=== PATIENT | male | born 1995 | race Caucasian/White ===

== ENCOUNTER 2021-04-28 14:45 | Emergency (ER) | payer BC, OTHER ==
[~2021-04-28] VITALS: Ht 180 cm; Wt 111.0 kg
[~2021-04-28 14:45] MED LIST: ALBU17AE3; FEXO30TA17
--- NOTE | 2021-04-28 15:44 | ED Respiratory ---
General Chief Complaint: Respiratory Problems Stated Complaint: SOA Nursing Triage Note: ARRIVED VIA AMB WITH COMPLAINTS OF SOA STARTING YESTERDAY. WAS SEEN AT [facility] ET WAS NOT TESTED FOR COVID. Source: patient Exam Limitations: no limitations History of Present Illness Date Seen by Provider: Apr 28, 2021 Allergies and Home Medications Allergies Coded Allergies: No Known Drug Allergies (Unverified , 05/24/09) Patient Home Medication List Fexofenadine Hcl (Nubia) 30 Mg Tablet, (Reported) Entered as Reported by: NILESH JEAN on 01/16/111703 Discontinued Medications Albuterol (Proventil) 17 Gm Inh, (Reported) Discontinued Reason: No Longer Taking Entered as Reported by: SAMARA VOGEL on 05/24/092201 Last Action: Discontinued Past Jkihvnz-Lhbskk-Fsckmj Hx Patient Social History Tobacco Use?: No Substance use?: No Alcohol Use?: Yes Alcohol Frequency: Couple times a week Physical Exam Vital Signs - First Documented 04/28/21 14:50 Temp 35.6 Pulse 75 Resp 16 B/P (MAP) 140/88 (105) Pulse Ox 97 O2 Delivery Room Air Capillary Refill : Less Than 3 Seconds Height: '" Weight: lbs. oz. kg; 34.00 BMI Method: Progress/Results/Core Measures Suspected Sepsis SIRS Temperature: Pulse: 75 Respiratory Rate: 16 Blood Pressure 140 /88 Mean: 105 Results/Orders Lab Results Laboratory Tests Test 04/28/21 15:00 Range/Units Influenza Type A (RT-PCR) Not Detected Not Detecte Influenza Type B (RT-PCR) Not Detected Not Detecte SARS-CoV-2 RNA (RT-PCR) Not Detected Not Detecte My Orders Orders - URBAN PEREZ APRN Covid 19 Inhouse Test (04/28/21 15:35) Influenza A And B By Pcr (04/28/21 15:35) Isolation Central Supply Req (04/28/21 15:35) Vital Signs/I&O 04/28/21 14:50 Temp 35.6 Pulse 75 Resp 16 B/P (MAP) 140/88 (105) Pulse Ox 97 O2 Delivery Room Air Capillary Refill : Less Than 3 Seconds Blood Pressure Mean: 105 Departure Impression Primary Impression: Reactive airway disease Disposition: 01 HOME, SELF-CARE Condition: Stable Departure-Patient Inst. Decision time for Depature: 16:09 Patient Instructions: Asthma, Adult ED Add. Discharge Instructions: Plan: 1. Use Albuterol 2 puffs every 4 hours as needed for shortness of breath. 2. Follow up with your doctor or return if you develop fever, nausea, vomiting, or any other concerning symptoms. 3. Return to ER for any new, concerning symptoms. All discharge instructions reviewed with patient and/or family. Voiced understanding. Scripts Albuterol Sulfate (VENTOLIN HFA) 1 Puff Puff 2 PUFF INH Q4H, #1 UNIT 0 Refills 1 PUFF = 90 MCG Prov: URBAN PEREZ OVERCOIL STEPPER 04/28/21 URBAN PEREZ OVERCOIL STEPPER Apr 28, 2021 15:44
[2021-04-28] MEDS ORDERED: RT-ALBUINH INH (16:11)
[2021-04-28] MEDS ORDERED: RT-ALBUTEROL HFA 8.5 GM INHALER IH ONE ×2 (16:34→18:00)
--- NOTE | 2021-04-28 16:48 | Diagnostic Imaging Report ---
INDICATION: Chest tightness and shortness of air. EXAMINATION: Chest 04/28/2021 FINDINGS: The cardiomediastinal silhouette is unremarkable. The pulmonary vasculature is within normal limits. The lungs and pleural spaces are clear. IMPRESSION: No evidence of an acute cardiopulmonary process. Dictated by: Dictated on workstation # [id number]
[2021-04-28 17:01] VITALS: BP 131/94
== END 2021-04-28 17:01 | disposition home or self-care (01) ==
LOC: EDUNIT# 14:45 → ER 14:46
DX: J45.909 Unspecified asthma, uncomplicated (principal); Z20.822 Contact with and (suspected) exposure to COVID-19
CPT/HCPCS: 71045; 87636

== ENCOUNTER 2023-03-16 20:37 | Emergency (ER) | payer BC ==
[~2023-03-16] VITALS: Ht 180.3 cm; Wt 111.0 kg
[~2023-03-16 20:37] MED LIST changes: +RT-ALBUINH INH
[2023-03-16] MEDS ORDERED: KETOROLAC 30 MG/ML VIAL IVP STA (21:02)
[2023-03-16] MEDS ORDERED: NS IV 1000 ML 1,000 ML IV STA (21:02)
[2023-03-16] MEDS ORDERED: FAMOTIDINE 20 MG (PEPCID) TABLET PO STA (21:02)
--- NOTE | 2023-03-16 21:07 | ED GI ---
General Stated Complaint: ABDOMINAL PAIN History of Present Illness Date Seen by Provider: Mar 16, 2023 Time Seen by Provider: 20:45 Initial Comments Here with report of central abdominal pain radiating left and right that is associated with nausea, shortness of breath and fatigue. 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 Denies diarrhea or dysuria and denies blood in his urine or stool. Denies sore throat or cough but does have some nasal congestion. He is vaccinated for COVID and has had COVID previously. Reports drinking okay decreased appetite and reports increased urination. He does chew tobacco and occasionally drinks. No significant abdominal surgery history. Timing/Duration: 4-6 Hours Severity/Quality: Moderate Location: Other (Central) Radiation: Other (Middle abdomen both right and left side) Activities at Onset: None Modifying Factors: Improves With Resting Associated Symptoms: No Back Pain, No Chest Pain, No Fever/Chills; Fatigue, Nausea/Vomiting, Shortness of Air Allergies and Home Medications Allergies Coded Allergies: No Known Drug Allergies (Unverified , 05/24/09) Patient Home Medication List Home Medication List Reviewed: Yes Albuterol Sulfate (Ventolin Hfa) 1 Puff Puff, 2 PUFF INH Q4H Prescribed by: URBAN PEREZ on 04/28/21 1611 Fexofenadine Hcl (Nubia) 30 Mg Tablet, (Reported) Entered as Reported by: NILESH JEAN on 01/16/11 1704 Review of Systems Review of Systems Constitutional: see HPI; No chills, No fever EENTM: Nose Congestion; No Throat Pain Respiratory: Denies Cough; Shortness of Air Cardiovascular: Denies Chest Pain, Denies Edema Gastrointestinal: Abdominal Pain; Denies Diarrhea; Nausea; Denies Vomiting Genitourinary: Frequency; Denies Flank Pain Skin: no symptoms reported Past Quxcpqe-Kjljog-Qlnjgb Hx Patient Social History Tobacco Use?: No Smokeless Tobacco Frequency: Current Everyday User Use of E-Cig and/or Vaping dev: No Substance use?: No Alcohol Use?: Yes Alcohol Frequency: Once in a while Past Medical History Surgeries: Yes Orthopedic Respiratory: No Cardiac: No Genitourinary: No Gastrointestinal: No Musculoskeletal: No Endocrine: No Family Medical History Reviewed Nursing Family Hx No Pertinent Family Hx Physical Exam Vital Signs Vital Signs - First Documented 03/16/23 20:45 Temp 36.9 Pulse 115 Resp 16 B/P (MAP) 145/87 (106) Pulse Ox 96 O2 Delivery Room Air Capillary Refill : Height/Weight/BMI Height: '" Weight: lbs. oz. kg; 34.00 BMI Method: General Appearance: WD/WN, no apparent distress HEENT: PERRL/EOMI, pharynx normal, other (Mild nasal congestion) Neck: full range of motion, supple Respiratory: lungs clear, normal breath sounds Cardiovascular: no murmur, tachycardia Gastrointestinal: soft; No guarding, No rebound; tenderness (Centrally left and right side as well as middle) Extremities: non-tender, normal inspection Back: normal inspection, no CVA tenderness, no vertebral tenderness Skin: normal color, warm/dry Progress/Results/Core Measures Results/Orders Lab Results Laboratory Tests Test 03/16/23 20:50 03/16/23 20:55 Range/Units White Blood Count 13.1 H 4.3-11.0 10^3/uL Red Blood Count 5.80 H 4.30-5.52 10^6/uL Hemoglobin 16.3 13.3-17.7 g/dL Hematocrit 48 40-54 % Mean Corpuscular Volume 82 80-99 fL Mean Corpuscular Hemoglobin 28 25-34 pg Mean Corpuscular Hemoglobin Concent 34 32-36 g/dL Red Cell Distribution Width 12.7 10.0-14.5 % Platelet Count 258 130-400 10^3/uL Mean Platelet Volume 10.5 9.0-12.2 fL Immature Granulocyte % (Auto) 1 % Neutrophils (%) (Auto) 85 H 42-75 % Lymphocytes (%) (Auto) 6 L 12-44 % Monocytes (%) (Auto) 8 0-12 % Eosinophils (%) (Auto) 0 0-10 % Basophils (%) (Auto) 0 0-10 % Neutrophils # (Auto) 11.1 H 1.8-7.8 10^3/uL Lymphocytes # (Auto) 0.8 L 1.0-4.0 10^3/uL Monocytes # (Auto) 1.0 0.0-1.0 10^3/uL Eosinophils # (Auto) 0.1 0.0-0.3 10^3/uL Basophils # (Auto) 0.0 0.0-0.1 10^3/uL Immature Granulocyte # (Auto) 0.1 0.0-0.1 10^3/uL Percent Immature Platelet Fraction 5.6 0.0-7.6 % Sodium Level 138 135-145 MMOL/L Potassium Level 4.0 3.6-5.0 MMOL/L Chloride Level 105 98-107 MMOL/L Carbon Dioxide Level 21 21-32 MMOL/L Anion Gap 12 5-14 MMOL/L Blood Urea Nitrogen 13 7-18 MG/DL Creatinine 1.01 0.60-1.30 MG/DL Estimat Glomerular Filtration Rate 103 BUN/Creatinine Ratio 13 Glucose Level 108 H 70-105 MG/DL Calcium Level 9.4 8.5-10.1 MG/DL Corrected Calcium 9.1 8.5-10.1 MG/DL Total Bilirubin 0.4 0.1-1.0 MG/DL Aspartate Amino Transf (AST/SGOT) 24 5-34 U/L Alanine Aminotransferase (ALT/SGPT) 48 0-55 U/L Alkaline Phosphatase 98 40-136 U/L C-Reactive Protein High Sensitivity 3.47 H 0.00-0.50 MG/DL Total Protein 7.8 6.4-8.2 GM/DL Albumin 4.4 3.2-4.5 GM/DL Urine Color YELLOW Urine Clarity CLEAR Urine pH 6.0 5-9 Urine Specific [place] 1.015 L 1.016-1.022 Urine Protein NEGATIVE NEGATIVE Urine Glucose (UA) NEGATIVE NEGATIVE Urine Ketones NEGATIVE NEGATIVE Urine Nitrite NEGATIVE NEGATIVE Urine Bilirubin NEGATIVE NEGATIVE Urine Urobilinogen 0.2 < = 1.0 MG/DL Urine Leukocyte Esterase NEGATIVE NEGATIVE Urine RBC (Auto) NEGATIVE NEGATIVE Urine RBC NONE /HPF Urine WBC NONE /HPF Urine Squamous Epithelial Cells NONE /HPF Urine Crystals NONE /LPF Urine Bacteria TRACE /HPF Urine Casts PRESENT /LPF Urine Hyaline Casts 0-2 H /LPF Urine Mucus SMALL H /LPF Urine Culture Indicated NO My Orders Orders - HARRIET CLIFTON MD Cbc With Automated Diff (03/16/23 21:02) Comprehensive Metabolic Panel (03/16/23 21:02) Hs C Reactive Protein (03/16/23 21:02) Ua Culture If Indicated (03/16/23 21:02) Ondansetron Injection (Zofran Injectio (03/16/23 21:15) Famotidine Tablet (Pepcid Tablet) (03/16/23 21:02) Ns Iv 1000 Ml (Sodium Chloride 0.9%) (03/16/23 21:02) Ed Iv/Invasive Line Start (03/16/23 21:02) Pantoprazole Injection (Protonix Injecti (03/16/23 21:15) Ketorolac Injection (Toradol Injection) (03/16/23 21:02) Manual Differential (03/16/23 20:50) Lactated Ringers (Lr 1000 Ml Iv Solution (03/16/23 22:07) Medications Given in ED Current Medications Medications Dose Ordered Sig/Jimi Route Start Time Stop Time Status Last Admin Dose Admin Ondansetron HCl 4 mg ONCE ONCE IVP 03/16/23 21:15 03/16/23 21:16 DC 03/16/23 21:10 4 MG Pantoprazole 40 mg ONCE ONCE IV 03/16/23 21:15 03/16/23 21:16 DC 03/16/23 21:10 40 MG Vital Signs/I&O 03/16/23 20:45 Temp 36.9 Pulse 115 Resp 16 B/P (MAP) 145/87 (106) Pulse Ox 96 O2 Delivery Room Air Progress Progress Note : Progress Note Seen and evaluated. IV, labs including CBC, CMP and CRP as well as UA ordered. Normal saline 1 L bolus. Pepcid 20 mg p.o., Protonix 40 mg IV, Zofran 4 mg IV and Toradol 30 mg IV ordered. Monitor patient. Differential diagnosis include viral syndrome, gastritis, dehydration, electrolyte abnormality, intra-abdominal pathology 2218: Overall doing a little better. I have repeated LR 1 L bolus. Labs reviewed and do show slightly elevated white count and concentrated hemoglobin on CBC. CMP grossly normal with slightly elevated CRP. UA grossly normal. Heart rate has improved to 90 and I think will improve further with more fluid. Monitor patient. 2302: Much improved after second liter of fluid. We did discuss OTC medications and outpatient instructions as well as follow-up plan. Discharged home with return precautions. Patient verbalized understanding instructions and agreement with plan. Departure Impression Primary Impression: Abdominal pain Qualified Codes: R10.10 - Upper abdominal pain, unspecified Additional Impressions: Acid reflux disease Qualified Codes: K21.9 - Gastro-esophageal reflux disease without esophagitis Viral syndrome Disposition: HOME, SELF-CARE Condition: Improved Departure-Patient Inst. Decision time for Depature: 23:03 Referrals: JADIEL PHILLIP DO NO,LOCAL PHYSICIAN (PCP) Primary Care Physician Patient Instructions: Severe Abdominal Pain, Adult (DC), Acid Reflux and GERD in Adults (DC), Viral Syndrome (DC) Add. Discharge Instructions: Drink plenty of fluids by taking small sips frequently. Clear a light diet for the next 24 hours and then advance as tolerated. You may take [id number] Pepcid or the generic famotidine 20 mg once or twice daily as needed for increased acid. You may also initiate omeprazole 20 mg daily for the next couple of weeks as needed to reduce stomach acid. Follow-up with your doctor for recheck and further evaluation. You may follow-up with the surgeon listed or of your choosing for further evaluation including possible upper endoscopy (scope) if needed. Return for worse pain, fever, vomiting, weakness, breathing problems or other concerns as needed. HARRIET CLIFTON MD Mar 16, 2023 21:07
[2023-03-16] MEDS ORDERED: PANTOPRAZOLE 40 MG (PROTONIX) VIAL IV ONE (21:15)
[2023-03-16] MEDS ORDERED: ONDANSETRON 4 MG/2 ML (SDV) Z0FRAN IVP ONE (21:15)
[2023-03-16 21:24] LABS: ALBUMIN 4.4 GM/DL (3.2-4.5); BASOPHILS % (AUTO) 0 % (0-10); EOSINOPHILS # (AUTO) 0.1 10^3/uL (0.0-0.3); EOSINOPHILS % (AUTO) 0 % (0-10); HEMATOCRIT 48 % (40-54); HEMOGLOBIN 16.3 g/dL (13.3-17.7); LYMPHOCYTES # (AUTO) 0.8 10^3/uL (1.0-4.0); LYMPHOCYTES % (AUTO) 6 % (12-44); MEAN CORPUSCULAR HEMOGLOBIN 28 pg (25-34); MEAN CORPUSCULAR HGB CONC 34 g/dL (32-36); MEAN CORPUSCULAR VOLUME 82 fL (80-99); MEAN PLATELET VOLUME 10.5 fL (9.0-12.2); MONOCYTES % (AUTO) 8 % (0-12); NEUTROPHILS # (AUTO) 11.1 10^3/uL (1.8-7.8); NEUTROPHILS % (AUTO) 85 % (42-75); PLATELET COUNT 258 10^3/uL (130-400); WHITE BLOOD COUNT 13.1 10^3/uL (4.3-11.0)
[2023-03-16 21:26] LABS: CALCIUM 9.4 MG/DL (8.5-10.1)
[2023-03-16 21:27] LABS: TOTAL PROTEIN 7.8 GM/DL (6.4-8.2)
[2023-03-16 21:29] LABS: BILIRUBIN,TOTAL 0.4 MG/DL (0.1-1.0)
[2023-03-16 21:31] LABS: CREATININE SERUM 1.01 MG/DL (0.60-1.30)
[2023-03-16 21:58] LABS: BILIRUBIN,URINE NEGATIVE (NEGATIVE); CLARITY,URINE CLEAR; COLOR,URINE YELLOW; GLUCOSE, URINE (UA) NEGATIVE (NEGATIVE); KETONES,URINE NEGATIVE (NEGATIVE); LEUKOCYTE ESTERASE ,URINE NEGATIVE (NEGATIVE); NITRITE,URINE NEGATIVE (NEGATIVE); PROTEIN,URINE NEGATIVE (NEGATIVE)
[2023-03-16 22:06] LABS: BACTERIA,URINE TRACE /HPF; HYALINE CASTS, URINE 0-2 /LPF
[2023-03-16] MEDS ORDERED: LACTATED RINGERS 1,000 ML IV STA (22:07)
[2023-03-16 23:09] LABS: BAND NEUTROPHILS 8 %; LYMPHOCYTES % (MANUAL) 2 %; MONOCYTES % (MANUAL) 8 %; NEUTROPHILS % (MANUAL) 81 %; NUCLEATED RED BLOOD CELLS 1; PLATELET ESTIMATE ADEQUATE; RBC MORPH NORMAL
[2023-03-16 23:11] VITALS: BP 129/84
== END 2023-03-16 23:11 | disposition home or self-care (01) ==
LOC: EDUNIT# 20:37 → ER 20:39
DX: K21.9 Gastro-esophageal reflux disease without esophagitis (principal); B34.9 Viral infection, unspecified; F17.220 Nicotine dependence, chewing tobacco, uncomplicated; Z86.16 Personal history of COVID-19
CPT/HCPCS: 36415; 80053; 81000; 85007; 85025; 85027; 86141